=== PATIENT | male | born 1985 | race Two or more races ===

== ENCOUNTER 2024-04-22 02:06 | Emergency (ER) | payer MEDICAID, SELFPAY ==
[2024-04-22 02:07] VITALS: BMI 32.5
[2024-04-22 02:15] VITALS: BP 146/95; PULSE 113; RESP 18; TEMP 36.5; O2SAT 100
[2024-04-22] MEDS: KETOROLAC INJ 60 MG/2 ML VIAL IM (02:42)
--- NOTE | 2024-04-22 03:32 | PD.EDEXREM ---
ED Extremity Problem RME/HPI General Chief complaint: Extremity Problem,Nontraumatic Stated complaint: LEFT KNEE PAIN, ARTHRITIS Time Seen by Provider: 04/22/24 02:19 Arrival date/time: 04/22/24 02:06 39M with HTN and known arthritis in L knee (~5 years) presents to ED with flare-up. Limitations: no limitations Related Data Home Medications ?Medication ?Instructions ?Recorded ?Confirmed lisinopril 20 mg tablet 20 mg PO QDAY 06/24/21 06/24/21 Previous Rx's ?Medication ?Instructions ?Recorded albuterol sulfate 90 mcg/actuation 2 puff PO QID #1 inh 12/01/13 aerosol inhaler (ProAir HFA) Allergies Allergy/AdvReac Type Severity Reaction Status Date / Time No Known Allergies Allergy Verified 06/24/21 14:30 Review of Systems Review of Systems Systems Reviewed: All systems reviewed, normal except as documented Constitutional Constitutional: Reports system reviewed and no additional complaints, except as documented, Denies fever(s) and Denies headache(s) ENT Ears, Nose, Mouth, and Throat: Denies disequilibrium and Denies headache(s) Cardiovascular Cardiovascular: Reports system reviewed and no additional complaints, except as documented, Denies chest pain and Denies dyspnea Respiratory Respiratory: Reports system reviewed and no additional complaints, except as documented, Denies cough and Denies dyspnea Gastrointestinal Gastrointestinal: Reports system reviewed and no additional complaints, except as documented, Denies abdominal pain, Denies nausea and Denies vomiting Musculoskeletal Musculoskeletal: Reports as per HPI and Reports arthralgias Neurologic Neurologic: Reports system reviewed and no additional complaints, except as documented, Denies confusion, Denies disequilibrium and Denies headache(s) Psychiatric Psychiatric: Denies confusion Past Medical History Past Medical History NEUROLOGIC: Negative Neurological Disorders or Seizures CARDIAC: Positive Cardiac Disorders and Hypertension (TAKES MED); Negative Congestive Heart Failure, Edema, Cellulitis or Varicose Veins RESPIRATORY: Positive Asthma (LAST USE OF INHALER 2019); Negative Chronic Obstructive Pulmonary Disease (COPD), Tuberculosis, Pulmonary Embolism or Sleep Apnea GASTROINTESTINAL: Negative Gastrointestinal Disorders or Hepatitis GENITOURINARY: Negative Genitourinary Disorders or Renal Disease MUSCULOSKELETAL: Positive Musculoskeletal Disorders and Rheumatoid Arthritis ENDOCRINE: Negative Endocrine Disorders, Diabetes Mellitus Type 1 or Diabetes Mellitus Type 2 HEMATOLOGIC: Negative Blood Disorders OTHER HISTORY: Positive Chicken Pox; Negative Hospitalization, Autoimmune Disease, Shingles, Falls, Blood Transfusions, Blood Transfusion Reaction, Anesthesia Reactions, Chemotherapy, Radiation Therapy, MRSA, Measles, Mumps or Cancer Family History FAMILY HISTORY: Positive Family Cardiac Disorders (MOTHER (HTN)); Negative Family Psychiatric Problems, Family Respiratory Disorders, Family Gastrointestinal Problems, Family Cancer, Family Surgery or Family Anesthesia Reaction Surgical History SURGICAL: Negative Pacemaker Social History SMOKING STATUS: Never smoker ED Exam General Limitations: Present no limitations General appearance: Present alert and in no apparent distress Head Head exam: Present atraumatic Eye Eye exam: Present normal appearance, PERRL and EOMI ENT ENT exam: Present normal exam, normal oropharynx and mucous membranes moist Neck Neck exam: Present normal inspection, full ROM and trachea midline Chest Chest inspection: Present normal inspection and symmetric chest wall rise Respiratory Respiratory exam: Present normal lung sounds bilaterally Cardiovascular Cardiovascular exam: Present regular rate, normal rhythm and normal heart sounds Abdominal Exam Abdominal exam: Present soft and normal bowel sounds Extremities Exam Extremities exam: Present normal inspection and full ROM Back Exam Back exam: Present normal inspection and full ROM Neurological Exam Neurological exam: Present alert, oriented X3 and CN II-XII intact Psychiatric Psychiatric exam: Present normal affect and normal mood Skin Skin exam: Present warm, dry, intact and normal color Course Quality Measures none Orders Category Date Time Status Ketorolac Inj [Toradol Inj] Med 04/22/24 02:20 Discontinued 60 mg IM X1 ONE Vital Signs Vital signs: Vital Signs Temperature 97.7 F 04/22/24 02:15 Pulse Rate 113 H 04/22/24 02:15 Respiratory Rate 18 04/22/24 02:15 Blood Pressure 146/95 H 04/22/24 02:15 Pulse Oximetry (%) 100 04/22/24 02:15 Oxygen Delivery Method Room Air 04/22/24 02:15 O2 at 100% on RA and WNLs Extremity Problem MDM Narrative MDM Narrative:: 39M with HTN and known arthritis in L knee (~5 years) presents to ED with flare-up. Physical exam reveals no gross swelling, redness, or tenderness of L knee. ROM intact. Patient is afebrile, calm, and alert. Meds given. Patient data External records reviewed:: [facility] previous records Clinical information provided by:: patient Social determinants that could affect healthcare access:: none Patient has the following chronic illnesses:: HTN How is presenting disease/condition affected by chronic disease/condition?: uneffected by Evaluation data The following diagnostics were reviewed and interpreted by me:: other (specify) (none) Lab and/or radiology exams considered but not ordered:: not ordered Interpretation Summary: n/a Medications / Prescriptions Medications or Prescriptions considered but not ordered:: ordered Medication administrations:: Medication Administration History Discontinued Medications Ketorolac Tromethamine (Ketorolac Inj 60 Mg/2 Ml Vial) 60 mg IM X1 ONE Stop: 04/22/24 02:21 Last Admin: 04/22/24 02:42 Dose: 60 mg Documented By: EE above Consultations Consultation(s) initiated? (list below): No Diagnosis Extremity Problem Differential Diagnosis: herpes zoster, gout, cellulitis, superficial thrombophlebitis, deep venous thrombosis of upper extremity, lower extremity edema and deep vein thrombosis of lower extremity Most likely diagnosis given after review of the tests above:: knee arthritis Admission Indicated Admission indicated?: not indicated Admission Request Was there a request for admission?: No Disposition Plan Disposition Plan: Discharge Discharge Attestation Discharge Attestation: The patient and all family members were given an opportunity to ask questions and understood the discharge instructions. Discharge instructions specifically effects, indications for sooner follow up or return to the emergency department, and the expected course of current diagnosis. Patient condition: Stable Discharge Plan Plan Patient Disposition: HOME (Self Care) Disposition Comment: Stable Prescriptions/Referrals Prescriptions/Med Rec: No Action albuterol sulfate [ProAir HFA] 8.5 GM HFA aerosol inhaler 2 puff PO QID Qty: 1 0RF lisinopril 20 mg Tablet 20 mg PO QDAY Problem List Clinical Impression: Knee osteoarthritis Patient/Caregiver Discharge Instructions Additional Instructions: Please follow-up with PCP within 24-48 hours and return immediately if symptoms worsen. If problem persists, recommend outpatient PT and/or MRI follow-up. In the meantime, rest, use ice/heat, and/or compression. Print Language: Thai Stand Alone Forms: Patient Portal Info Letter NUBIA/MARILY Supervising Physician NUBIA/MARILY Supervising Physician: Dr. Paul
== END 2024-04-22 02:43 | disposition home or self-care (01) ==
LOC: SERX 04:50
PROVIDERS: Emergency Provider Emergency Medicine; PCP Physician Assistant
DX: M17.12 Unilateral primary osteoarthritis, left knee (principal)
CPT/HCPCS: 96372; 99283; J1885

== ENCOUNTER 2024-09-26 15:19 | Emergency (ER) | payer MEDICAID, SELFPAY ==
[2024-09-26 15:20] VITALS: BMI 32.5
[2024-09-26 15:32] VITALS: BP 136/87; PULSE 120; RESP 18; TEMP 38; O2SAT 96
--- NOTE | 2024-09-26 15:57 | EDNOTE_ITS ---
<Statement entered by Tasneem Stanford MD - 09/27/24 17:05> As co-signing physician, I was present and available for consult prn. I concur with the plan and care as documented by the midlevel provider. Upper Respiratory Inf. RME/HPI General Chief Complaint: Flu Like Symptoms Stated Complaint: COUGH/CHEST PAIN Time Seen by Provider: 09/26/24 15:51 Arrival date/time: 09/26/24 15:19 Limitations: no limitations RME / HPI RME / HPI Narrative: 39-year-old male presents to the ED with a complaint of upper respiratory symptoms for the past 2 days. He is complaining of runny nose, nasal c ongestion, sore throat, cough with green sputum, shortness of breath, body aches, and fever/chills. Related Data Home Medications ?Medication ?Instructions ?Recorded ?Confirmed lisinopril 20 mg tablet 20 mg PO QDAY 06/24/2106/24 Previous Rx's ?Medication ?Instructions ?Recorded albuterol sulfate 90 mcg/actuation 2 puff PO QID #1 in h 12/01/13 aerosol inhaler (ProAir HFA) albuterol sulfate 90 mcg/actuation 2 puff inhalation Q 4H PRN 09/26/24 aerosol inhaler shortness of breath or wheez ing #8.5 grams ibuprofen 600 mg tablet 600 mg PO Q8H PRN fever or p ain 09/26/24 #20 tabs oseltamivir 75 mg capsule (Tamiflu) 75 mg PO BID 5 day s #10 caps 09/26/24 Allergies Allergy/AdvReac Type Severity Reaction Status Date / Time No Known Allergies Allergy Verified 09/26/24 15:23 Review of Systems Review of Systems Systems Reviewed: All systems reviewed, normal except as documented Past Medical History Past Medical History NEUROLOGIC: Negative Neurological Disorders or Seizures CARDIAC: Positive Cardiac Disorders and Hypertension (TAKES MED); Negative Congestive Heart Failure, Edema, Cellulitis or Varicose Veins RESPIRATORY: Positive Asthma (LAST USE OF INHALER 2019); Negative Chronic Obstructive Pulmonary Disease (COPD), Tuberculosis, Pulmonary Embolism or Sleep Apnea GASTROINTESTINAL: Negative Gastrointestinal Disorders or Hepatitis GENITOURINARY: Negative Genitourinary Disorders or Renal Disease MUSCULOSKELETAL: Positive Musculoskeletal Disorders and Rheumatoid Arthritis ENDOCRINE: Negative Endocrine Disorders, Diabetes Mellitus Type 1 or Diabetes Mellitus Type 2 HEMATOLOGIC: Negative Blood Disorders OTHER HISTORY: Positive Chicken Pox; Negative Hospitalization, Autoimmune Disease, Shingles, Falls, Blood Transfusions, Blood Transfusion Reaction, Anesthesia Reactions, Chemotherapy, Radiation Therapy, MRSA, Measles, Mumps or Cancer Family History FAMILY HISTORY: Positive Family Cardiac Disorders (MOTHER (HTN)); Negative Family Psychiatric Problems, Family Respiratory Disorders, Family Gastrointestinal Problems, Family Cancer, Family Surgery or Family Anesthesia Reaction Surgical History SURGICAL: Negative Pacemaker Social History SMOKING STATUS: Never smoker ED Exam Narrative Physical exam: Alert and oriented 39-year-old male, no acute respiratory distress. Lungs are diminished at the bases, he is tachycardic at 120. Current temperature of 100.4. TMs without erythema, nares are with erythema and edema, pharynx is with erythema. Neck is supple, positive anterior cervical chain adenopathy. Moves all extremities well. General Limitations: Present no limitations General appearance: Present alert Course Course Course Narrative: 39-year-old male presents to the ED with a complaint of upper respiratory symptoms for the past 2 days. He is complaining of runny nose, nasal congestion, sore throat, cough with green sputum, shortness of breath, body aches, and fever/chills. Alert and oriented 39-year-old male, no acute respiratory distress. Lungs are diminished at the bases, he is tachycardic at 120. Current temperature of 100.4. TMs without erythema, nares are with erythema and edema, pharynx is with erythema. Neck is supple, positive anterior cervical chain adenopathy. Moves all extremities well. XR Chest: FINDINGS: Normal heart size. Lungs are clear. Osseous structures are intact IMPRESSION: No active disease Influenza A/B swab: Positive influenza A. Quality Measures none Orders Category Date Time Status Bedside COVID-19 Antigen Test NOW Care 09/26/24 16:00 Active Bedside Influenza A&B Antigen Test NOW Care 09/26/24 16:00 Completed XR chest 2V Stat Exams 09/26/24 16:00 Completed Strep A Rapid Stat Lab 09/26/24 17:58 Ordered Albuterol/Ipratr Rt Lidya [Duoneb Rt Lidya] Med 09/26/24 16:00 Discontinued 3 ml INH X1 ONE Vital Signs Vital signs: Vital Signs Temperature 100.4 F 09/26/24 15:32 Pulse Rate 120 H 09/26/24 15:32 Respiratory Rate 18 09/26/24 15:32 Blood Pressure 136/87 H 09/26/24 15:32 Pulse Oximetry (%) 96 09/26/24 15:32 Oxygen Delivery Method Room Air 09/26/24 15:32 Upper Respiratory Infection MDM Narrative MDM Narrative:: 39-year-old male presents to the ED with a complaint of upper respiratory symptoms for the past 2 days. He is complaining of runny nose, nasal congestion, sore throat, cough with green sputum, shortness of breath, body aches, and fever/chills. Alert and oriented 39-year-old male, no acute respiratory distress. Lungs are diminished at the bases, he is tachycardic at 120. Current temperature of 100.4. TMs without erythema, nares are with erythema and edema, pharynx is with erythema. Neck is supple, positive anterior cervical chain adenopathy. Moves all extremities well. Patient data External records reviewed:: None Clinical information provided by:: patient Social determinants that could affect healthcare access:: none Patient has the following chronic illnesses:: HTN How is presenting disease/condition affected by chronic disease/condition?: no chronic disease Evaluation data The following diagnostics were reviewed and interpreted by me:: lab results and radiology exam(s) Lab and/or radiology exams considered but not ordered:: N/A Interpretation Summary: Influenza A swab positive. XR chest: FINDINGS: Normal heart size. Lungs are clear. Osseous structures are intact IMPRESSION: No active disease Medications / Prescriptions Medications or Prescriptions considered but not ordered:: N/A Medication administrations:: Medication Administration History Discontinued Medications Albuterol/Ipratropium (Albuterol/Ipratropium (Duoneb) Rt Lidya 3 Ml Nebu) 3 ml INH X1 ONE Stop: 09/26/24 16:01 Last Admin: 09/26/24 16:13 Dose: 3 ml Documented By: [facility] DuoNeb Consultations Consultation(s) initiated? (list below): No Diagnosis Upper Respiratory Differential Diagnosis: upper respiratory infection, s inusitis, viral infection, bronchitis, influenza and pharyngitis Most likely diagnosis given after review of the tests above:: Influenza A Admission Indicated Admission indicated?: not indicated Explain why admission is indicated or not indicated:: Patient is stable for discharge. Admission Request Was there a request for admission?: No Disposition Plan Disposition Plan: Discharge Discharge Attestation Discharge Attestation: The patient and all family members were given an opportunity to ask questions and understood the discharge instructions. Discharge instructions specifically effects, indications for sooner follow up or return to the emergency department, and the expected course of current diagnosis. Patient condition: Stable Discharge Plan Plan Patient Disposition: HOME (Self Care) Discharge Disposition comment: Stable and improved Prescriptions/Referrals Prescriptions/Med Rec: New oseltamivir [Tamiflu] 75 mg capsule 75 mg PO BID 5 Days Qty: 10 0RF albuterol sulfate 90 mcg/actuation HFA aerosol inhaler 2 puff inhalation Q4H PRN (Reason: shortness of breath or wheezing) Qty: 8.5 0RF ibuprofen 600 mg tablet 600 mg PO Q8H PRN (Reason: fever or pain) Qty: 20 0RF No Action albuterol sulfate [ProAir HFA] 8.5 GM HFA aerosol inhaler 2 puff PO QID Qty: 1 0RF lisinopril 20 mg Tablet 20 mg PO QDAY Referrals: Jourdan Gauthier PA-C [Primary Care Provider] - In 1 week Problem List Clinical Impression: Influenza Patient/Caregiver Discharge Instructions Education Materials: ED Influenza (Adult) Additional Instructions: Get plenty of rest and drink plenty of fluids. Follow-up with your primary care physician in 24 to 48 hours. Return to the ED for any new or worsening symptoms. Print Language: Namibian Stand Alone Forms: Kalpana Award Info., Patient Portal Info Letter PA/MARILY Supervising Physician PA/MARILY Supervising Physician: Dr. Stanford
--- NOTE | 2024-09-26 16:00 | XR_ITS ---
Examination: PA and lateral chest 2 views TECHNIQUE: Upright PA and lateral chest 2 views Date and time: September 26, 2024 1603 hours INDICATIONS: Coughing fever shortness of breath today FINDINGS: Normal heart size Lungs are clear. Osseous structures are intact IMPRESSION: No active disease
[2024-09-26] MEDS: ALBUTEROL/IPRATROPIUM (Duoneb) RT SOL 3 ML NEBU INH (16:13)
[2024-09-26 16:14] VITALS: PULSE 125; RESP 20; O2SAT 100
== END 2024-09-26 18:59 | disposition home or self-care (01) ==
PROVIDERS: Emergency Provider Emergency Medicine; PCP Physician Assistant
DX: J10.1 Influenza due to other identified influenza virus with other respiratory manifestations (principal)
CPT/HCPCS: 71046; 87400; 87651; 87811; 94640; 99283; A9270